=== PATIENT | female | born 1960 | race Hispanic/Latino ===

== ENCOUNTER 2018-10-05 06:27 | Day surgery (SDC) | payer BC ==
[2018-10-04 16:19] LABS: BASOPHILS % (AUTO) 0.9 % (0.0-5.0); EOSINOPHILS % (AUTO) 2.3 % (0.0-8.0); HEMATOCRIT 40.5 % (36-48); LYMPHOCYTES % (AUTO) 35.1 % (21.0-51.0); MEAN CORPUSCULAR HEMOGLOBIN 29.8 pg (27.0-33.0); MEAN CORPUSCULAR HGB CONC 33.2 g/dL (32.0-36.0); MEAN CORPUSCULAR VOLUME 89.7 fL (79-99); MONOCYTES % (AUTO) 11.3 % (3.0-13.0); NEUTROPHILS % (AUTO) 50.4 % (40.0-77.0); PLATELET COUNT (AUTO) 154 K/uL (130-400); RED BLOOD CELL COUNT(AUTO) 4.52 MIL/uL (4.00-5.50); RED CELL DISTRIBUTION WIDTH 12.7 % (11.0-15.5); WHITE BLOOD COUNT (AUTO) 5.5 K/uL (4.8-10.8)
[2018-10-04 16:20] VITALS: BP 162/71
[2018-10-04 16:30] LABS: CREATININE 0.8 mg/dL (0.5-1.5); POTASSIUM 3.7 mmol/L (3.5-5.1)
[2018-10-05] VITALS (14 sets, daily range): BP systolic 114–141; BP diastolic 62–88
[~2018-10-05] VITALS: Ht 165.1 cm; Wt 89.9 kg
[2018-10-05] MEDS: CLINDAMYCIN 900 MG/D5% WATER 50 ML IV SCH ×2 (06:00→10:10)
[2018-10-05] MEDS ORDERED: LACTATED RINGERS 1000ML 1,000 ML IV ONE (07:01)
--- NOTE | 2018-10-05 07:17 | NUR ---
PAIN pt denies pain at rest , has swelling and pain right knee for kristina 1 year ,denies injury Addendum: 10/05/18 at 0719 by ADONAY PENNINGTON RN RN Amended: Links added.
[2018-10-05] MEDS ORDERED: LIDOCAINE PF 2% 5ML ABBOJECT ONE (09:02)
[2018-10-05] MEDS ORDERED: PROPOFOL 10 MG/ML 20ML VIAL IV ONE (09:03)
[2018-10-05] MEDS ORDERED: ROCURONIUM 10MG/1ML SYR 10 MG/ML ML ONE (09:03)
[2018-10-05] MEDS ORDERED: ONDANSETRON HCL 4 MG/2 ML VIAL ONE (09:03)
[2018-10-05] MEDS ORDERED: MIDAZOLAM HCL 1 MG/ML 2ML VIAL ONE (09:03)
[2018-10-05] MEDS ORDERED: FENTANYL CITRATE PF 50 MCG/1 ML 2ML VIAL ONE (09:04)
[2018-10-05] MEDS ORDERED: PHENYLEPHRINE HCL 10 MG/ML 1ML VIAL IV ONE (10:20)
[2018-10-05] MEDS ORDERED: SULF1TAB42 PO (11:10)
[2018-10-05] MEDS ORDERED: NAPR-1192 PO (11:10)
[2018-10-05] MEDS ORDERED: TYL3 PO (11:10)
--- NOTE | 2018-10-05 12:11 | NUR ---
RECEIVE PT RECEIVED FROM PACU VIA STRETCHER AWAKE ALERT ORIENTED X3. PT STABLE. NO COMPLAINTS MADE. DRESSING TO RIGHT KNEE DRY AND INTACT, NO OOZING NOTED, SKIN WARM. ICE PACK APPLIED TO SITE. CALL [facility] WITHIN REACH, CALLED FAMILY TO COME IN TO ROOM.
--- NOTE | 2018-10-05 12:55 | NUR ---
DISCHARGE PT DISCHARGED VIA WHEELCHAIR WITH SISTER. PT STABLE. NO COMPLAINTS MADE. VOIDED PRIOR TO DISCHARGE. PT WAS ABLE TO TAKE FEW STEPS WITH USE OF CRUTCHES WITHOUT ANY PROBLEMS, WEIGHT BEARING TOLERATED TO RIGHT LEG. DISCHARGE INSTRUCTIONS GIVEN TO SISTER AND PT, VERBALIZED UNDERSTANDING.
== END 2018-10-05 12:55 | disposition home or self-care (01) ==
LOC: DAH 06:27
PROVIDERS: ATTEND Orthopaedic Surgery
DX: M23.221 Derangement of posterior horn of medial meniscus due to old tear or injury, right knee (principal); M94.261 Chondromalacia, right knee; Z98.51 Tubal ligation status; Z68.33 Body mass index [BMI] 33.0-33.9, adult; Z79.899 Other long term (current) drug therapy; Z88.0 Allergy status to penicillin; M25.561 Pain in right knee
CPT/HCPCS: 29881; 36415; 80048; 85025; 87641; A4606; A4649 ×2; A4930; A6223; J2001; J2250; J2370; J2405; J2704; J3010; J3490; J7120 ×2

== ENCOUNTER 2021-08-20 14:00 | Observation (INO) | payer OTHER ==
[~2021-08-20] VITALS: Ht 165.1 cm; Wt 89.8 kg
[2021-08-20 09:35] LABS: BASOPHILS % (AUTO) 1.2 % (0.0-5.0); EOSINOPHILS % (AUTO) 2.2 % (0.0-8.0); HEMATOCRIT 39.3 % (36-48); LYMPHOCYTES % (AUTO) 30.5 % (21.0-51.0); MEAN CORPUSCULAR HEMOGLOBIN 28.9 pg (27.0-33.0); MEAN CORPUSCULAR HGB CONC 32.1 g/dL (32.0-36.0); MEAN CORPUSCULAR VOLUME 90.1 fL (79-99); MONOCYTES % (AUTO) 10.1 % (3.0-13.0); NEUTROPHILS % (AUTO) 55.8 % (40.0-77.0); PLATELET COUNT (AUTO) 159 K/uL (130-400); RED BLOOD CELL COUNT(AUTO) 4.36 MIL/uL (4.00-5.50); RED CELL DISTRIBUTION WIDTH 12.2 % (11.0-15.5); WHITE BLOOD COUNT (AUTO) 4.1 K/uL (4.8-10.8)
[2021-08-20 09:45] LABS: CREATININE 0.7 mg/dL (0.5-1.5); INR 0.96 (0.85-1.15); POTASSIUM 4.5 mmol/L (3.5-5.1); PROTHROMBIN TIME 10.5 SEC (9.6-11.6)
[2021-08-20 10:10] LABS: APPEARANCE,URINE Clear (CLEAR); BILIRUBIN,URINE Negative (NEGATIVE); COLOR,URINE Yellow (YELLOW); GLUCOSE, URINE (UA) Negative (NEGATIVE); KETONES,URINE Negative (NEGATIVE); LEUKOCYTE ESTERASE ,URINE Trace (NEGATIVE); NITRATE,URINE Negative (NEGATIVE); OCCULT BLOOD,URINE Negative (NEGATIVE); PROTEIN,URINE Negative (NEGATIVE)
[2021-08-20 10:19] VITALS: BP 161/82
[2021-08-20 10:36] LABS: RBC,URINE 0-1 /HPF (0-1)
[2021-08-20 10:37] LABS: BACTERIA,URINE Rare /HPF (None Seen); MUCUS,URINE Rare LPF (None Seen); SQUAMOUS EPITHELIAL CELL,UR Rare /HPF (0-2)
[~2021-08-20 14:00] MED LIST: NAPR-1023 PO; TYL3B PO
[2021-08-23] VITALS (21 sets, daily range): BP systolic 108–147; BP diastolic 60–97
[2021-08-23] MEDS: CLINDAMYCIN IVPB 900MG/50ML 50 ML IV SCH ×4 (05:00→18:28)
[2021-08-23] MEDS ORDERED: LACTATED RINGERS 1000ML 1,000 ML IV ONE (06:17)
[2021-08-23] MEDS ORDERED: CEFAZOLIN SODIUM 1 GM VIAL ONE (07:22)
[2021-08-23] MEDS ORDERED: ROCURONIUM 10MG/1ML SYR 10 MG/ML ML ONE (09:06)
[2021-08-23] MEDS ORDERED: MIDAZOLAM HCL 1 MG/ML 2ML VIAL ONE (09:06)
[2021-08-23] MEDS ORDERED: LIDOCAINE PF 100MG/5ML (2%) SYRINGE 5ML ONE (09:06)
[2021-08-23] MEDS ORDERED: PROPOFOL 10 MG/ML 20ML VIAL IV ONE (09:06)
[2021-08-23] MEDS ORDERED: ROPIVACAINE 0.5% 5MG/ML 30ML IJ ONE (09:10)
[2021-08-23] MEDS ORDERED: EPHEDRINE SULFATE 50 MG/ML AMPULE ONE (09:22)
[2021-08-23] MEDS ORDERED: FENTANYL CITRATE PF 50 MCG/1 ML 2ML VIAL ONE (09:51)
[2021-08-23] MEDS ORDERED: ONDANSETRON 4MG INJ ONE (09:52)
[2021-08-23] MEDS ORDERED: GLYCOPYRROLATE 1 MG/5 ML SYRINGE ONE (09:52)
[2021-08-23] MEDS ORDERED: DEXAMETHASONE SOD PHOSPHATE 4 MG/ML 1ML VIAL ONE (09:52)
[2021-08-23] MEDS ORDERED: NEOSTIGMINE 5MG/5ML SYR IV ONE (09:52)
[2021-08-23] MEDS ORDERED: TEMAZEPAM 15 MG CAPSULE PO PRN (12:00)
[2021-08-23] MEDS ORDERED: TRAMADOL HCL 50 MG TABLET PO PRN (12:00)
[2021-08-23] MEDS: PSYLLIUM SEED 1 EACH PACKET PO SCH (12:00)
[2021-08-23] MEDS ORDERED: FERROUS FUMARATE 324 MG TABLET PO PRN (12:00)
[2021-08-23] MEDS ORDERED: POTASSIUM CHLORIDE 10% ELIXIR 20 MEQ/15 ML UDCUP PO PRN (12:00)
[2021-08-23] MEDS ORDERED: KCL 20 MEQ ERTAB PO PRN (12:00)
[2021-08-23] MEDS ORDERED: DIPHENHYDRAMINE HCL 25 MG CAPSULE PO PRN (12:00)
[2021-08-23] MEDS ORDERED: PROMETHAZINE HCL 25 MG/ML 1ML AMPULE IM PRN (12:00)
[2021-08-23] MEDS ORDERED: KETOROLAC 30MG VIAL (30MG/ML) IV PRN (12:00)
[2021-08-23] MEDS: ACETAMINOPHEN 500 MG TABLET PO SCH ×2 (12:00→21:11)
[2021-08-23] MEDS ORDERED: CALCIUM CARB 500MG PO PRN (12:00)
[2021-08-23] MEDS ORDERED: 0.9%NACL 1000ML 1,000 ML IV SCH (12:00)
[2021-08-23] MEDS ORDERED: POTASSIUM CHLORIDE 20MEQ/100ML 100 ML IV PRN (12:00)
[2021-08-23] MEDS ORDERED: OXYCODONE HCL 5 MG TAB PO PRN ×2 (12:00)
[2021-08-23] MEDS ORDERED: LIDOCAINE HCL-MPF 1% 2ML VIAL IV PRN (12:00)
[2021-08-23] MEDS ORDERED: DiphenhydrAMINE HCL 50 MG/ML VIAL IVP PRN (12:00)
[2021-08-23] MEDS ORDERED: NAPROXEN 500 MG TABLET PO PRN (13:30)
[2021-08-23] MEDS: CELECOXIB 200 MG CAP PO SCH (21:09)
[2021-08-23] MEDS: PREGABALIN 25 MG CAP PO SCH (21:09)
[2021-08-23] MEDS: FAMOTIDINE 20MG TAB PO SCH (21:09)
[2021-08-23] MEDS: ENOXAPARIN SODIUM 40 MG/0.4 ML SYRINGE SQ SCH (21:10)
[2021-08-24 00:12] VITALS: BP 110/52
[2021-08-24] MEDS: CLINDAMYCIN IVPB 900MG/50ML 50 ML IV SCH (01:51)
[2021-08-24 03:43] LABS: HEMATOCRIT 33.1 % (36-48); MEAN CORPUSCULAR HEMOGLOBIN 29.4 pg (27.0-33.0); MEAN CORPUSCULAR HGB CONC 32.3 g/dL (32.0-36.0); MEAN CORPUSCULAR VOLUME 90.9 fL (79-99); RED BLOOD CELL COUNT(AUTO) 3.64 MIL/uL (4.00-5.50); RED CELL DISTRIBUTION WIDTH 12.4 % (11.0-15.5); WHITE BLOOD COUNT (AUTO) 8.1 K/uL (4.8-10.8)
[2021-08-24] MEDS: ACETAMINOPHEN 500 MG TABLET PO SCH ×2 (03:45→11:43)
[2021-08-24 03:52] LABS: CREATININE 0.9 mg/dL (0.5-1.5)
[2021-08-24 04:16] VITALS: BP 107/54
[2021-08-24 07:20] VITALS: BP 122/53
[2021-08-24] MEDS: FAMOTIDINE 20MG TAB PO SCH (08:40)
[2021-08-24] MEDS: CELECOXIB 200 MG CAP PO SCH (08:40)
[2021-08-24] MEDS: ENOXAPARIN SODIUM 40 MG/0.4 ML SYRINGE SQ SCH (08:40)
[2021-08-24] MEDS: PREGABALIN 25 MG CAP PO SCH (08:40)
[2021-08-24] MEDS ORDERED: POLYETHYLENE GLYCOL 3350 17 GM POWD.PACK PO SCH (09:00)
[2021-08-24 11:20] VITALS: BP 119/57
[2021-08-24] MEDS: PSYLLIUM SEED 1 EACH PACKET PO SCH (11:42)
[2021-08-24] MEDS ORDERED: AEC81 PO (12:23)
[2021-08-24] MEDS ORDERED: HYDR-4060 PO (12:23)
[2021-08-24 15:20] VITALS: BP 126/57
[2021-08-25] MEDS ORDERED: BISACODYL 5 MG TABLET.DR PO PRN (12:00)
[2021-08-26] MEDS ORDERED: BISACODYL 10 MG SUPP.RECT RC PRN (12:00)
== END 2021-08-24 18:00 | disposition home or self-care (01) ==
LOC: DAHIP 08-23 05:57 → 4AH 08-23 12:35
PROVIDERS: ADMIT Orthopaedic Surgery; ATTEND Orthopaedic Surgery
DX: S82.041A Displaced comminuted fracture of right patella, initial encounter for closed fracture (principal); Z20.822 Contact with and (suspected) exposure to COVID-19; D62 Acute posthemorrhagic anemia; E66.9 Obesity, unspecified; W19.XXXA Unspecified fall, initial encounter; Y93.89 Activity, other specified; Y92.89 Other specified places as the place of occurrence of the external cause
CPT/HCPCS: 27524; 36415 ×2; 64447; 73560; 76942; 80048 ×2; 81001; 85025; 85027; 85610; 87088; 87635; 87641; 96365; 96366; 96375 ×2; 96376; 97039 ×2; 97116 ×2; 97161; A4215; A4216; A4221; A4222; A4223 ×2; A4344; A4600; A4649 ×2; A4663; A4930; A5120; C1713 ×2; G0168; G0378 ×29; J0690; J1100; J1650 ×3; J1885; J2001; J2250; J2405; J2704; J2710; J2795; J3010; J3490 ×5; J7120